=== PATIENT | female | born 1940 | race Caucasian/White ===

== ENCOUNTER 2016-08-29 16:16 | Emergency (ER) | payer MEDICARE, OTHER ==
[2016-08-29 16:25] VITALS: BP 180/99
--- NOTE | 2016-08-29 17:30 | ED Physician Documentation ---
History of Present Illness - Stated complaint Stated Complaint: RASH - Chief complaint Chief Complaint: General - History obtained from History obtained from: Patient, Family - Additonal information Additional information: 76-year-old woman, most of the history is from the is memory difficulties. The last month she has had an itchy rash, diffusely. It sounds like she saw her physician for it and was prescribed a topical hypodensity steroid, potentially flunicolide, from their description, although we are not quite sure. They were unable to fill the prescription but he had a prescription for at home for half that strength which was trialed and unsuccessful. Review of Systems Unable to obtain: Dementia PD PAST MEDICAL HISTORY - Past Medical History Cardiovascular: Hypertension Endocrine/Autoimmune: Type 2 diabetes, HyPOthyroidism - Past Surgical History Past Surgical History: Yes /[employer]: Hysterectomy - Present Medications Home Medications: Ambulatory Orders Medication Instructions Recorded Confirmed Levothyroxine [Synthroid] 150 mcg PO DAILY 05/28/14 08/29/16 Metformin HCl 500 mg PO BID 05/28/14 08/29/16 Lisinopril 10 mg PO DAILY 05/31/14 08/29/16 Hydrocodone/Acetaminophen [Haines 1 each PO Q6H PRN #20 tablet 03/14/16 08/29/16 5-325 Tablet] Doxycycline Hyclate 100 mg PO BID #14 tablet 08/29/16 Permethrin 5% Cream [(None)] 60 gm TP ONCE #2 cream..g. 08/29/16 - Allergies Allergies/Adverse Reactions: Allergies Allergy/AdvReac Type Severity Reaction Status Date / Time Penicillins Allergy Unknown Verified 08/29/16 16:24 chlorinated water Allergy Unknown Uncoded 03/14/16 13:09 - Social History Does the pt smoke?: No Smoking Status: Never smoker Does the pt drink ETOH?: No Does the pt have substance abuse?: No - Immunizations Immunizations are current?: Yes - POLST Patient has POLST: No PD ED PE NORMAL - Vitals Vital signs reviewed: Yes - General General: Other (A/O x1, pleasant) - Derm Derm: Other (Diffusely, most notably over the trunk and flexor creases of the arms and extensor creases of the legs she has a rash, they are small ulcers that looks like popped pustules the most part.) Results - Vitals Vitals: Vital Signs - 24 hr 08/29/16 16:20 Temperature 36.7 C Heart Rate 74 Respiratory 16 Rate Blood Pressure 180/99 H O2 Saturation 95 Oxygen O2 Source Room air PD MEDICAL DECISION MAKING - ED course ED course: I discussed with the patient and her that I am not quite sure what this rash represents, could be bacterial or scabies. We will treat for both but followup with dermatology was advised. Departure - Departure Disposition: 01 Home, Self Care Clinical Impression: Rash and nonspecific skin eruption Condition: Good Record reviewed to determine appropriate education?: Yes Instructions: ED Erythema Follow-Up: [facility] [Provider Group] - Within 1 week Prescriptions: Permethrin 5% Cream [(None)] 60 gm TP ONCE #2 cream..g. Doxycycline Hyclate 100 mg PO BID #14 tablet Comments: Your blood pressure was elevated today on check in to the emergency department. This does not mean that you have hypertension, it is a common phenomenon to check into the emergency department and have elevated blood pressure. I recommend that you see your primary care physician within the week to have it rechecked when you're feeling better.
== END 2016-08-29 17:35 | disposition home or self-care (01) ==
LOC: ED 16:16
DX: R21 Rash and other nonspecific skin eruption (principal); I10 Essential (primary) hypertension; E03.9 Hypothyroidism, unspecified; E11.9 Type 2 diabetes mellitus without complications; Z79.84 Long term (current) use of oral hypoglycemic drugs
CPT/HCPCS: 99283

== ENCOUNTER 2017-01-26 09:18 | Outpatient (CLI) | payer MEDICARE, OTHER | END 2017-01-26 09:19 | disposition EMS.NT | LOC: EMS 09:18 | PROVIDERS: ATTEND Surgery | DX: Z03.89 Encounter for observation for other suspected diseases and conditions ruled out (principal) ==